=== PATIENT | female | born 1960 | race Caucasian/White ===

== ENCOUNTER → 2016-08-05 | Outpatient (CLI) | payer OTHER ==
--- NOTE | 2016-08-05 18:02 | US ---
EXAMINATION TYPE: US thyroid st tissue head/neck DATE OF EXAM: 08/05/2016 COMPARISON: February 08, 2014 CLINICAL HISTORY: E04.1 Thyroid Nodule. follow up GLAND SIZE: Right Lobe: 3.5 x 1.2 x 1.0 cm Overall Parenchyma: heterogenous Left Lobe: 3.8 x 1.5 x 1.4 cm Overall Parenchyma: heterogeneous Isthmus Thickness: 0.3 cm NODULES RIGHT: # of nodules measured on right: 0 LEFT: # of nodules measured on left: 2 1. 1.2 X 0.7 x 0.9 cm hypoechoic solid nodule at the upper pole with well-defined margins; . This nodule is wider than tall and shows intranodular vascularity. Prior size: 1.0 x 0.6 x 0.7 cm 2. 1.0 X 0.7 x 1.0 cm hypoechoic mixed nodule at the mid pole with well-defined margins; . This nod ule is wider than tall and shows intranodular vascularity. Prior size: 0.9 x 0.6 x 0.6 cm ISTHMUS: # of nodules measured in the isthmus: 0 Bilateral neck scanned, no evidence of lymphadenopathy. nodules as described IMPRESSION: 1. Stable bilateral heterogeneity. 2. Stable left-sided nodularity which is nonspecific.
== END | disposition home or self-care (01) ==
LOC: RADUSWWP 14:59
PROVIDERS: ATTEND Family Medicine
DX: E04.1 Nontoxic single thyroid nodule (principal)
CPT/HCPCS: 76536

== ENCOUNTER → 2016-09-02 | Outpatient (CLI) | payer OTHER | END | disposition home or self-care (01) | LOC: LABWHC1 11:58 | PROVIDERS: ATTEND Internal Medicine Endocrinology, Diabetes & Metabolism | DX: E03.8 Other specified hypothyroidism (principal) | CPT/HCPCS: 36415; 84443 ==

== ENCOUNTER → 2016-10-14 | Outpatient (CLI) | payer OTHER ==
--- NOTE | 2016-10-15 10:55 | MM ---
Reason for exam: screening (asymptomatic). Last mammogram was performed 1 year ago. History: Patient is postmenopausal. Family history of premenopausal breast cancer in sister at age 44. Benign left mammotome panel of the left breast, September 16, 2011. Benign stereotactic core biopsy of the left breast, January 11, 2003. Core biopsy of the left breast. Physical Findings: A clinical breast exam by your physician is recommended on an annual basis and results should be correlated with mammographic findings. MG 3D Screening Mammo W/Cad Bilateral CC and MLO view(s) were taken. Prior study comparison: October 09, 2015, bilateral MG 3d screening mammo w/cad. October 03, 2014, bilateral MG screening mammo w CAD. September 28, 2013, bilateral MG screening mammo w CAD. The breast tissue is heterogeneously dense. This may lower the sensitivity of mammography. Finding #1: There is a 20-25 mm oval mass in the upper outer quadrant, anterior position of the left breast. Finding #2: There are typically benign round calcifications in both breasts, greater in the left breast. Previous mammotome biopsy in the left breast x 2. ASSESSMENT: Incomplete: need additional imaging evaluation, BI-RAD 0 RECOMMENDATION: Ultrasound of the left breast. If lesion persists on supplemental views, image directed ultrasound is recommended. [facility] will attempt to contact patient to return for supplemental views and ultrasound if indicated.
== END | disposition home or self-care (01) ==
LOC: RADMAMWWP 10:52
PROVIDERS: ATTEND Obstetrics & Gynecology
DX: Z12.31 Encounter for screening mammogram for malignant neoplasm of breast (principal)
CPT/HCPCS: 77063; G0202

== ENCOUNTER → 2016-10-21 | Outpatient (CLI) | payer OTHER ==
--- NOTE | 2016-10-22 09:52 | USB ---
Reason for exam: additional evaluation requested from abnormal screening. History: Patient is postmenopausal. Family history of premenopausal breast cancer in sister at age 44. Benign left mammotome panel of the left breast, September 16, 2011. Benign stereotactic core biopsy of the left breast, January 11, 2003. Core biopsy of the left breast. Physical Findings: Nurse Summary: prominant bilateraly nodularity, all soft, movable (nurse ts). US Breast Workup Limited LT Left breast ultrasound demonstates a 2.2 x 2.0 x 0.9cm cystic lesion at 1 o'clock and duct ectasia at the nipple. These results were verbally communicated with the patient and result sheet given to the patient on 10/21/16. ASSESSMENT: Benign, BI-RAD 2 RECOMMENDATION: Return to routine screening mammogram schedule for both breasts.
== END ==
LOC: RADUSWWP 14:10
PROVIDERS: ATTEND Obstetrics & Gynecology
DX: R92.8 Other abnormal and inconclusive findings on diagnostic imaging of breast (principal)

== ENCOUNTER → 2016-11-05 | Outpatient (CLI) | payer OTHER | END | disposition home or self-care (01) | LOC: LABWHC1 12:30 | PROVIDERS: ATTEND Internal Medicine Endocrinology, Diabetes & Metabolism | DX: E03.8 Other specified hypothyroidism (principal) | CPT/HCPCS: 36415; 84443 ==

== ENCOUNTER 2017-02-23 20:44 | Emergency (ER) | payer OTHER ==
[2017-02-23] MEDS ORDERED: SODIUM CHLORIDE 0.9% 1,000 ML IV STA (21:18)
[2017-02-23] MEDS ORDERED: ONDANSETRON 4 MG/2 ML VIAL IVP STA (21:18)
[2017-02-23 21:58] LABS: Amorphous Sediment,Urine Rare /hpf; Appearance,Urine Cloudy (Clear); Bacteria,Urine Occasional /hpf; Bilirubin,Urine Negative (Negative); Glucose,Urine (UA) Trace (Negative); Ketones,Urine Negative (Negative); Leukocyte Esterase,Urine Negative (Negative); Mucus,Urine Rare /hpf; Nitrite,Urine Negative (Negative); PH, Urine 7.5 (5.0-8.0); Particle Count 8249; Protein,Urine Trace (Negative); RBC,Urine 1 /hpf (0-5); Specific Gravity,Urine 1.009 (1.001-1.035); Squamous Epithelial Cell,Urine 1 /hpf (0-4); UA Billing (MACRO vs. MICRO) MICRO; Urobilinogen,Urine <2.0 mg/dL (<2.0); WBC,Urine 3 /hpf (0-5)
[2017-02-23 22:00] LABS: Basophils # (A) 0.1 k/uL (0-0.2); Basophils % (A) 1 %; CH 30.1; CHCM 35.1; Eosinophils # (A) 0.1 k/uL (0-0.7); Eosinophils % (A) 2 %; HCT 42.2 % (34.0-46.0); HDW 2.63; HGB 14.4 gm/dL (11.4-16.0); Luc # (Auto) 0.22; Luc % (Auto) 3; Lymphocytes # (A) 2.3 k/uL (1.0-4.8); Lymphocytes % (A) 28 %; MCH 29.5 pg (25.0-35.0); MCHC 34.2 g/dL (31.0-37.0); MCV 86.4 fL (80.0-100.0); Mean Platelet Volume 6.7; Monocytes # (A) 0.4 k/uL (0-1.0); Monocytes % (A) 5 %; Neutrophils % (A) 62 %; RBC 4.89 m/uL (3.80-5.40); RDW 12.7 % (11.5-15.5); WBC 8.1 k/uL (3.8-10.6)
[2017-02-23 22:06] LABS: ALT 30 U/L (9-52); AST 22 U/L (14-36); Alkaline Phosphatase 76 U/L (38-126); Anion Gap 11 mmol/L; Blood Urea Nitrogen 15 mg/dL (7-17); Calcium 9.9 mg/dL (8.4-10.2); Carbon Dioxide 24 mmol/L (22-30); Chloride 102 mmol/L (98-107); Glucose 169 mg/dL (74-99); Non-African American GFR(MDRD) >60 (>60 ml/min/1.73 sqM); Phosphorus 3.3 mg/dL (2.5-4.5); Potassium 3.4 mmol/L (3.5-5.1); Sodium 137 mmol/L (137-145); Total Bilirubin 0.3 mg/dL (0.2-1.3)
--- NOTE | 2017-02-23 22:06 | CT ---
EXAMINATION TYPE: CT brain wo con DATE OF EXAM: 02/23/2017 HISTORY: Dizziness today. CT DLP: 937.4 mGycm. Automated Exposure Control for Dose Reduction was Utilized. TECHNIQUE: CT scan of the head is performed without contrast. COMPARISON: None. FINDINGS: There is no acute intracranial hemorrhage or midline shift identified. Ventricles and sul ci are within normal limits in size for patient's age. Martinez-white matter differentiation is maintain ed. The globes are intact and the visualized sinuses are predominantly clear. Patchy soft tissue de nsity left external auditory canal is felt to reflect cerumen. No suspicious opacification mastoid ai r cells is present. IMPRESSION: No acute intracranial hemorrhage or midline shift.
[2017-02-23 22:16] LABS: INR 1.1 (<1.2); Prothrombin Time 10.3 sec (9.0-12.0)
--- NOTE | 2017-02-23 22:17 | ED ---
General Adult HPI - General Chief complaint: Dizziness Stated complaint: vomiting/dizziness Time Seen by Provider: 02/23/17 21:15 Source: patient, RN notes reviewed, old records reviewed Mode of arrival: wheelchair Limitations: no limitations - History of Present Illness Initial comments: this is a 36-year-old female to the ER for evaluation. Patient density for evaluation regarding dizziness. Patient has no medical history no trauma, no fevers. Patient states sudden onset tonight of the room spinning around severely, feeling very nauseous vomiting. Patient states symptoms seem to come and go but improved at this time. No headache chest pain shortness breath or abdominal pain no travel history, no sick contacts. Patient's liver prior source of, no new medications. Patient denies drugs or alcohol. - Related Data Home Medications Medication Instructions Recorded Confirmed Calcium Carbonate/Vitamin D3 1 tab PO DAILY 04/04/14 02/23/17 [Calcium 600-Vit D3 400 Tablet] Citalopram Hydrobromide [CeleXA] 20 mg PO DAILY 04/04/14 02/23/17 Levothyroxine Sodium [Synthroid] 75 mcg PO DAILY 04/04/14 02/23/17 Cholecalciferol [Vitamin D3] 1,000 unit PO DAILY 02/23/17 02/23/17 Metoprolol Succinate [Toprol XL] 25 mg PO DAILY 02/23/17 02/23/17 Allergies Allergy/AdvReac Type Severity Reaction Status Date / Time No Known Allergies Allergy Verified 02/23/17 21:27 Review of Systems ROS Statement: Those systems with pertinent positive or pertinent negative responses have been documented in the HPI. ROS Other: All systems not noted in ROS Statement are negative. Past Medical History Past Medical History: Thyroid Disorder Additional Past Medical History / Comment(s): Other HX: uterine fibroids, palpitations- takes atenolol for this reason, low iron anemia History of Any Multi-Drug Resistant Organisms: None Reported Past Surgical History: Orthopedic Surgery Additional Past Surgical History / Comment(s): bilateral carpal tunnel, right thumb, cyst removed from under R foot toe. Past Anesthesia/Blood Transfusion Reactions: No Reported Reaction Additional Past Anesthesia/Blood Transfusion Reaction / Comment(s): Pt has never recieved blood. Past Psychological History: Anxiety Smoking Status: Never smoker Past Alcohol Use History: None Reported Past Drug Use History: None Reported - Past Family History Father Family Medical History: Cancer, Coronary Artery Disease (CAD), Myocardial Infarction ([place]) Additional Family Medical History / Comment(s): Father from MDS a blood disorder, colon cancer, CABG Mother Family Medical History: No Reported History Additional Family Medical History / Comment(s): Mother is living and is 77 yrs old General Exam - General Exam Comments Initial Comments: left ear positive cerumen impaction Limitations: no limitations General appearance: alert, in no apparent distress Head exam: Present: atraumatic, normocephalic, normal inspection Eye exam: Present: normal appearance, PERRL, EOMI. Absent: scleral icterus, conjunctival injection, nystagmus, periorbital swelling ENT exam: Present: normal exam, mucous membranes moist Neck exam: Present: normal inspection. Absent: tenderness, meningismus, lymphadenopathy Respiratory exam: Present: normal lung sounds bilaterally. Absent: respiratory distress, wheezes, rales, rhonchi, stridor Cardiovascular Exam: Present: regular rate, normal rhythm, normal heart sounds. Absent: systolic murmur, diastolic murmur, rubs, gallop, clicks GI/Abdominal exam: Present: soft, normal bowel sounds. Absent: distended, tenderness, guarding, rebound, rigid Extremities exam: Present: normal inspection, full ROM, normal capillary refill. Absent: tenderness, pedal edema, joint swelling, calf tenderness Back exam: Present: normal inspection Neurological exam: Present: alert, oriented X3, CN II-XII intact Psychiatric exam: Present: normal affect, normal mood Skin exam: Present: warm, dry, intact, normal color. Absent: rash Course Vital Signs 02/23/17 02/23/17 20:57 22:33 Temperature 98.1 F Pulse Rate 77 70 Respiratory 18 17 Rate Blood Pressure 187/89 157/84 O2 Sat by Pulse 97 96 Oximetry - Reevaluation(s) Reevaluation #1: 02/23/17 23:01 patient's left ear was clear to cerumen Reevaluation #2: 02/23/17 23:02 patient is able to ambulate without difficulty, states her symptoms are much improved, resolved, no nausea EKG Findings - EKG Comments: EKG Findings:: KG shows sinus rhythm rate of 71, RI 1, QRS 92, QTc 478 Medical Decision Making - Medical Decision Making 55. For evaluation of dizziness. Room spinning around severe sudden onset with nausea and vomiting. Patient felt very dizzy and her feet. All symptoms at this point resolved. Symptoms were positional, patient is able to ambulate without difficulty and okay for discharge home. - Lab Data Result diagrams: 02/23/17 21:27 02/23/17 21:27 Lab Results 02/23/17 02/23/17 02/23/17 Range/Units 21:27 21: 21:27 WBC 8.1 (3.8-10.6) k/uL RBC 4.89 (3.80-5.40) m/uL Hgb 14.4 (11.4-16.0) gm/dL Hct 42.2 (34.0-46.0) % MCV 86.4 (80.0-100.0) fL MCH 29.5 (25.0-35.0) pg MCHC 34.2 (31.0-37.0) g/dL RDW 12.7 (11.5-15.5) % Plt Count 277 (150-450) k/uL Neutrophils % 62 % Lymphocytes % 28 % Monocytes % 5 % Eosinophils % 2 % Basophils % 1 % Neutrophils # 5.0 (1.3-7.7) k/uL Lymphocytes # 2.3 (1.0-4.8) k/uL Monocytes # 0.4 (0-1.0) k/uL Eosinophils # 0.1 (0-0.7) k/uL Basophils # 0.1 (0-0.2) k/uL PT (9.0-12.0) sec INR (<1.2) APTT (22.0-30.0) sec Sodium 137 (137-145) mmol/L Potassium 3.4 L (3.5-5.1) mmol/L Chloride 102 (98-107) mmol/L Carbon Dioxide 24 (22-30) mmol/L Anion Gap 11 mmol/L BUN 15 (7-17) mg/dL Creatinine 0.70 (0.52-1.04) mg/dL Est GFR (MDRD) Af Amer >60 (>60 ml/min/1.73 sqM) Est GFR (MDRD) Non-Af >60 (>60 ml/min/1.73 sqM) Glucose 169 H (74-99) mg/dL Calcium 9.9 (8.4-10.2) mg/dL Phosphorus 3.3 (2.5-4.5) mg/dL Magnesium 2.0 (1.6-2.3) mg/dL Total Bilirubin 0.3 (0.2-1.3) mg/dL AST 22 (14-36) U/L ALT 30 (9-52) U/L Alkaline Phosphatase 76 (38-126) U/L Total Creatine Kinase 115 (30-135) U/L CK-MB (CK-2) 1.2 (0.0-2.4) ng/mL CK-MB (CK-2) Rel Index 1.0 Troponin I <0.012 (0.000-0.034) ng/mL Total Protein 7.0 (6.3-8.2) g/dL Albumin 4.3 (3.5-5.0) g/dL Urine Color Urine Appearance (Clear) Urine pH (5.0-8.0) Ur Specific [place] (1.001-1.035) Urine Protein (Negative) Urine Glucose (UA) (Negative) Urine Ketones (Negative) Urine Blood (Negative) Urine Nitrite (Negative) Urine Bilirubin (Negative) Urine Urobilinogen (<2.0) mg/dL Ur Leukocyte Esterase (Negative) Urine RBC (0-5) /hpf Urine WBC (0-5) /hpf Ur Squamous Epith Cells (0-4) /hpf Amorphous Sediment (None) /hpf Urine Bacteria (None) /hpf Urine Mucus (None) /hpf 02/23/17 02/23/17 Range/Units 21:27 21:27 WBC (3.8-10.6) k/uL RBC (3.80-5.40) m/uL Hgb (11.4-16.0) gm/dL Hct (34.0-46.0) % MCV (80.0-100.0) fL MCH (25.0-35.0) pg MCHC (31.0-37.0) g/dL RDW (11.5-15.5) % Plt Count (150-450) k/uL Neutrophils % % Lymphocytes % % Monocytes % % Eosinophils % % Basophils % % Neutrophils # (1.3-7.7) k/uL Lymphocytes # (1.0-4.8) k/uL Monocytes # (0-1.0) k/uL Eosinophils # (0-0.7) k/uL Basophils # (0-0.2) k/uL PT 10.3 (9.0-12.0) sec INR 1.1 (<1.2) APTT 21.8 L (22.0-30.0) sec Sodium (137-145) mmol/L Potassium (3.5-5.1) mmol/L Chloride (98-107) mmol/L Carbon Dioxide (22-30) mmol/L Anion Gap mmol/L BUN (7-17) mg/dL Creatinine (0.52-1.04) mg/dL Est GFR (MDRD) Af Amer (>60 ml/min/1.73 sqM) Est GFR (MDRD) Non-Af (>60 ml/min/1.73 sqM) Glucose (74-99) mg/dL Calcium (8.4-10.2) mg/dL Phosphorus (2.5-4.5) mg/dL Magnesium (1.6-2.3) mg/dL Total Bilirubin (0.2-1.3) mg/dL AST (14-36) U/L ALT (9-52) U/L Alkaline Phosphatase (38-126) U/L Total Creatine Kinase (30-135) U/L CK-MB (CK-2) (0.0-2.4) ng/mL CK-MB (CK-2) Rel Index Troponin I (0.000-0.034) ng/mL Total Protein (6.3-8.2) g/dL Albumin (3.5-5.0) g/dL Urine Color Light Yellow Urine Appearance Cloudy H (Clear) Urine pH 7.5 (5.0-8.0) Ur Specific [place] 1.009 (1.001-1.035) Urine Protein Trace H (Negative) Urine Glucose (UA) Trace H (Negative) Urine Ketones Negative (Negative) Urine Blood Negative (Negative) Urine Nitrite Negative (Negative) Urine Bilirubin Negative (Negative) Urine Urobilinogen <2.0 (<2.0) mg/dL Ur Leukocyte Esterase Negative (Negative) Urine RBC 1 (0-5) /hpf Urine WBC 3 (0-5) /hpf Ur Squamous Epith Cells 1 (0-4) /hpf Amorphous Sediment Rare H (None) /hpf Urine Bacteria Occasional H (None) /hpf Urine Mucus Rare H (None) /hpf - Radiology Data Radiology results: report reviewed (CT brain is negative), image reviewed Disposition Clinical Impression: Dizziness, Vertigo Disposition: HOME SELF-CARE Condition: Good Instructions: Vertigo (ED) Referrals: Ruben Tam MD [Primary Care Provider] - 1-2 days
[2017-02-23 22:22] LABS: Creatine Kinase 115 U/L (30-135)
[2017-02-23 22:31] LABS: Partial Thromboplastin Time 21.8 sec (22.0-30.0)
[2017-02-23 22:33] LABS: Creatine Kinase MB 1.2 ng/mL (0.0-2.4); Troponin I <0.012 ng/mL (0.000-0.034)
[2017-02-23 22:34] VITALS: PULSE 70; RESP 17
[2017-02-23 23:43] VITALS: BP 148/85; TEMP 97.1
== END 2017-02-23 23:43 | disposition home or self-care (01) ==
LOC: EC 20:44
DX: R42 Dizziness and giddiness (principal); R11.2 Nausea with vomiting, unspecified; E07.9 Disorder of thyroid, unspecified; F41.9 Anxiety disorder, unspecified; Z79.899 Other long term (current) drug therapy; Z87.39 Personal history of other diseases of the musculoskeletal system and connective tissue
CPT/HCPCS: 36415; 93005; 80053; 82550; 82553; 83735; 84100; 84484; 85025; 85610; 85730; 81001; 87086; 70450; 99285; 96374; 96361 ×2; J2405

== ENCOUNTER → 2017-10-22 | Outpatient (CLI) | payer OTHER ==
--- NOTE | 2017-10-26 12:14 | MM ---
Reason for exam: screening (asymptomatic). Last mammogram was performed 1 year ago. History: Patient is postmenopausal. Family history of premenopausal breast cancer in sister at age 44. Benign left mammotome panel of the left breast, September 16, 2011. Benign stereotactic core biopsy of the left breast, January 11, 2003. Core biopsy of the left breast. Physical Findings: A clinical breast exam by your physician is recommended on an annual basis and results should be correlated with mammographic findings. MG 3D Screening Mammo W/Cad Bilateral CC and MLO view(s) were taken. Prior study comparison: October 14, 2016, bilateral MG 3d screening mammo w/cad. October 09, 2015, bilateral MG 3d screening mammo w/cad. Finding: There is a typically benign 20 mm high density, circumscribed oval mass in the 1 o'clock position of the right breast consistent with cyst from 2017. Previous mammotome biopsy in the left breast x 2. No significant changes in finding since October 14, 2016 and October 09, 2015. ASSESSMENT: Benign, BI-RAD 2 RECOMMENDATION: Routine screening mammogram of both breasts in 1 year.
== END | disposition home or self-care (01) ==
LOC: RADMAMWWP 14:02
PROVIDERS: ATTEND Obstetrics & Gynecology
DX: Z12.31 Encounter for screening mammogram for malignant neoplasm of breast (principal)
CPT/HCPCS: 77063; 77067

== ENCOUNTER → 2017-12-08 | Outpatient (CLI) | payer OTHER ==
--- NOTE | 2017-12-08 13:20 | US ---
EXAMINATION TYPE: US thyroid st tissue head/neck DATE OF EXAM: 12/08/2017 COMPARISON: 08/05/2016 CLINICAL HISTORY: 57-year-old female E04.2 GOITER. Follow up thyroid nodules, history of multiple bio psies, on thyroid meds. TECHNIQUE: Multiple sonographic images of the thyroid gland are obtained. FINDINGS: GLAND SIZE: Right Lobe: 3.3 x 1.2 x 1.2 cm Overall Parenchyma: heterogenous Left Lobe: 3.4 x 1.4 x 1.2 cm Overall Parenchyma: heterogeneous Isthmus Thickness: 0.4 cm NODULES RIGHT: # of nodules measured on right: 0 LEFT: # of nodules measured on left: 2 1. 1.1 X 0.7 x 0.9 cm hypoechoic mixed nodule at the upper pole with well-defined margins. This nod ule is wider than tall and shows intranodular vascularity. Prior size: 1.2 x 0.7 x 0.9 cm 2. 1.3 X 1.1 x 1.0 cm mixed nodule at the mid pole with poorly defined margins. This seems to repres ent a thick-walled cystic nodule. This nodule is wider than tall and shows intranodular vascularity. The cystic component as well as the overall nodule size is increased slightly. Prior size: 1.0 x 0.7 x 1.0 cm ISTHMUS: # of nodules measured in the isthmus: 0 Bilateral neck scanned, no evidence of lymphadenopathy. IMPRESSION: 2 dominant nodules on the left. Upper pole nodule at 1.1 x 0.9 cm is grossly stable. The mid pole nodule is mixed solid and cystic and shows slight interval size increase at 1.3 x 1.1 cm (versus 1.0 x 0.7 cm, previously). Continued follow-up recommended.
== END | disposition home or self-care (01) ==
LOC: RADUSWWP 12:15
PROVIDERS: ATTEND Internal Medicine Endocrinology, Diabetes & Metabolism
DX: E04.2 Nontoxic multinodular goiter (principal)
CPT/HCPCS: 76536

== ENCOUNTER → 2018-06-15 | Outpatient (CLI) | payer OTHER ==
--- NOTE | 2018-06-16 07:18 | US ---
EXAMINATION TYPE: US thyroid st tissue head/neck DATE OF EXAM: 06/15/2018 COMPARISON: US 12/08/2017 CLINICAL HISTORY: E04.2 MULTINODULAR GOITER. GLAND SIZE: Right Lobe: 3.5 x 1.2 x 1.0 cm Overall Parenchyma: homogenous Left Lobe: 4.1 x 1.4 x 1.3 cm Overall Parenchyma: homogeneous Isthmus Thickness: 0.3 cm NODULES RIGHT: # of nodules measured on right: 0 LEFT: # of nodules measured on left: 2 1. 1.1 X 0.6 x 0.9 cm hypoechoic mixed nodule at the upper pole with well-defined margins; . This nodule is wider than tall and shows intranodular vascularity. Prior size:1.1 X 0.7 x 0.9 cm 2. 1.3 X 0.9 x 1.1 cm hypoechoic mixed nodule at the lower pole with well-defined margins; . This n odule is wider than tall and shows intranodular vascularity. Prior size: 1.3 X 1.1 x 1.0 cm ISTHMUS: # of nodules measured in the isthmus: 0 Bilateral neck scanned, no evidence of lymphadenopathy. IMPRESSION: The thyroid nodules appear stable in size relative to the prior exam.
== END | disposition home or self-care (01) ==
LOC: RADUSWWP 15:30
PROVIDERS: ATTEND Internal Medicine Endocrinology, Diabetes & Metabolism
DX: E04.2 Nontoxic multinodular goiter (principal)
CPT/HCPCS: 76536

== ENCOUNTER → 2018-11-09 | Outpatient (CLI) | payer OTHER ==
--- NOTE | 2018-11-10 14:14 | MM ---
Reason for exam: screening (asymptomatic). Last mammogram was performed 1 year and 1 month ago. History: Patient is postmenopausal. Family history of premenopausal breast cancer in sister at age 44. Benign left mammotome panel of the left breast, September 16, 2011. Benign stereotactic core biopsy of the left breast, January 11, 2003. Core biopsy of the left breast. Physical Findings: A clinical breast exam by your physician is recommended on an annual basis and results should be correlated with mammographic findings. MG 3D Screening Mammo W/Cad Bilateral CC and MLO view(s) were taken. Prior study comparison: October 22, 2017, bilateral MG 3d screening mammo w/cad. October 14, 2016, bilateral MG 3d screening mammo w/cad. September 28, 2013, bilateral MG screening mammo w CAD. The breast tissue is heterogeneously dense. This may lower the sensitivity of mammography. There are multiple left round oval circumscribed masses, waxing and waning over time most characteristic of cysts. There is no discrete abnormality. No suspicious abnormality. Two left biopsy markers noted. No significant changes when compared with prior studies. ASSESSMENT: Benign, BI-RAD 2 RECOMMENDATION: Routine screening mammogram of both breasts in 1 year.
== END | disposition home or self-care (01) ==
LOC: RADMAMWWP 10:49
PROVIDERS: ATTEND Obstetrics & Gynecology
DX: Z12.31 Encounter for screening mammogram for malignant neoplasm of breast (principal)
CPT/HCPCS: 77063; 77067

== ENCOUNTER → 2019-12-22 | Outpatient (CLI) | payer OTHER ==
--- NOTE | 2019-12-26 11:02 | MM ---
Reason for exam: screening (asymptomatic). Last mammogram was performed 1 year and 1 month ago. History: Patient is postmenopausal. Family history of premenopausal breast cancer in sister at age 44. Benign left mammotome panel of the left breast, September 16, 2011. Benign stereotactic core biopsy of the left breast, January 11, 2003. Core biopsy of the left breast. Physical Findings: A clinical breast exam by your physician is recommended on an annual basis and results should be correlated with mammographic findings. MG 3D Screening Mammo W/Cad Bilateral CC and MLO view(s) were taken. Prior study comparison: November 09, 2018, bilateral MG 3d screening mammo w/cad. October 22, 2017, bilateral MG 3d screening mammo w/cad. The breast tissue is heterogeneously dense. This may lower the sensitivity of mammography. Previous mammotome biopsy in the left breast x 2. Diffuse punctate calcifications, greater in the left breast. No significant changes when compared with prior studies. ASSESSMENT: Benign, BI-RAD 2 RECOMMENDATION: Routine screening mammogram of both breasts in 1 year.
== END | disposition home or self-care (01) ==
LOC: RADMAMWWP 10:53
PROVIDERS: ATTEND Obstetrics & Gynecology
DX: Z12.31 Encounter for screening mammogram for malignant neoplasm of breast (principal)
CPT/HCPCS: 77063; 77067

== ENCOUNTER 2020-03-14 18:05 | Emergency (ER) | payer OTHER ==
[2020-03-14 18:44] VITALS: RESP 18; TEMP 97.9
[2020-03-14] MEDS ORDERED: SODIUM CHLORIDE 0.9% 500 ML 500 ML IV ONE (19:08)
--- NOTE | 2020-03-14 19:08 | ED ---
General Adult HPI - General Chief complaint: Recheck/Abnormal Lab/Rx Stated complaint: HIGH BLOOD PRESSURE Time Seen by Provider: 03/14/20 18:45 Source: patient, RN notes reviewed, old records reviewed Mode of arrival: ambulatory Limitations: no limitations - History of Present Illness Initial comments: 59-year-old female presented for evaluation of hypertension. Patient states that she typically has normal blood pressure, she was seen for an echo and was noted to have a blood pressure 160 which did improve to 140 systolic without specific treatment. She's been monitoring her blood pressure throughout the day today and has had several high reading she went to an outside urgent care and was noted to have a blood pressure greater than 200 systolic. She denies any central radiating typical chest pain. She reports some mild exertional dyspnea. And a mild headache which was not a thunderclap headache and not the worst headache of her life. No fever. No abdominal pain. She has been eating and drinking well. No lower extremity swelling. - Related Data Home Medications Medication Instructions Recorded Confirmed Calcium Carbonate/Vitamin D3 1 tab PO DAILY 04/04/14 02/23/17 [Calcium 600-Vit D3 400 Tablet] Citalopram Hydrobromide [CeleXA] 20 mg PO DAILY 04/04/14 02/23/17 Levothyroxine Sodium [Synthroid] 75 mcg PO DAILY 04/04/14 02/23/17 Cholecalciferol [Vitamin D3] 1,000 unit PO DAILY 02/23/17 02/23/17 Metoprolol Succinate [Toprol XL] 25 mg PO DAILY 02/23/17 02/23/17 Previous Rx's Medication Instructions Recorded amLODIPine [Norvasc] 5 mg PO DAILY #30 tab 03/14/20 Allergies Allergy/AdvReac Type Severity Reaction Status Date / Time No Known Allergies Allergy Verified 03/14/20 18:44 Review of Systems ROS Statement: Those systems with pertinent positive or pertinent negative responses have been documented in the HPI. ROS Other: All systems not noted in ROS Statement are negative. Past Medical History Past Medical History: Thyroid Disorder Additional Past Medical History / Comment(s): Other HX: uterine fibroids, palpitations- takes atenolol for this reason, low iron anemia History of Any Multi-Drug Resistant Organisms: None Reported Past Surgical History: Orthopedic Surgery Additional Past Surgical History / Comment(s): bilateral carpal tunnel, right thumb, cyst removed from under R foot toe. Past Anesthesia/Blood Transfusion Reactions: No Reported Reaction Additional Past Anesthesia/Blood Transfusion Reaction / Comment(s): Pt has never recieved blood. Past Psychological History: Anxiety Smoking Status: Never smoker Past Alcohol Use History: None Reported Past Drug Use History: None Reported - Past Family History Father Family Medical History: Cancer, Coronary Artery Disease (CAD), Myocardial Infarction (NH) Additional Family Medical History / Comment(s): Father from MDS a blood disorder, colon cancer, CABG Mother Family Medical History: No Reported History Additional Family Medical History / Comment(s): Mother is living and is 77 yrs old General Exam Limitations: no limitations General appearance: alert, in no apparent distress Head exam: Present: atraumatic, normocephalic Eye exam: Present: normal appearance, PERRL ENT exam: Present: normal exam Neck exam: Present: normal inspection. Absent: tenderness Respiratory exam: Present: normal lung sounds bilaterally. Absent: respiratory distress Cardiovascular Exam: Present: regular rate, normal rhythm GI/Abdominal exam: Present: soft. Absent: distended, tenderness Extremities exam: Present: normal inspection, normal capillary refill. Absent: pedal edema Back exam: Present: normal inspection Neurological exam: Present: alert, oriented X3, CN II-XII intact. Absent: motor sensory deficit Psychiatric exam: Present: normal affect, normal mood Skin exam: Present: warm, dry, intact. Absent: cyanosis, diaphoretic Course Vital Signs 03/14/20 03/14/20 03/14/20 18:41 20:12 22:21 Temperature 97.9 F Pulse Rate 82 78 80 Respiratory 18 18 18 Rate Blood Pressure 213/105 198/103 166/101 O2 Sat by Pulse 99 99 99 Oximetry EKG Findings - EKG Comments: EKG Findings:: EKG: Normal sinus, rate of 72 MO interval 116, QRS duration 80, QTC 451, no ST segment elevation. Medical Decision Making - Medical Decision Making 59-year-old female presenting for evaluation of hypertension. She did have a mild headache, and the setting of his high blood pressure did perform a CT which was negative for skull hemorrhage or mass effect. Chest x-rays negative for acute cardiopulmonary disease. She is otherwise well-appearing with a nonfocal exam. Other vitals are stable. EKG is sinus rhythm. She has a normal CBC, normal CMP, negative troponin Blood pressure does remain high, patient is started on Norvasc. - Lab Data Result diagrams: 03/14/20 19:17 03/14/20 19:17 Lab Results 03/14/20 03/14/20 03/14/20 Range/Units 19:04 19:17 19:17 WBC 7.9 (3.8-10.6) k/uL RBC 5.32 (3.80-5.40) m/uL Hgb 14.9 (11.4-16.0) gm/dL Hct 46.6 H (34.0-46.0) % MCV 87.5 (80.0-100.0) fL MCH 28.1 (25.0-35.0) pg MCHC 32.0 (31.0-37.0) g/dL RDW 13.0 (11.5-15.5) % Plt Count 256 (150-450) k/uL MPV 7.3 Neutrophils % 77 % Lymphocytes % 16 % Monocytes % 4 % Eosinophils % 1 % Basophils % 0 % Neutrophils # 6.1 (1.3-7.7) k/uL Lymphocytes # 1.3 (1.0-4.8) k/uL Monocytes # 0.3 (0-1.0) k/uL Eosinophils # 0.1 (0-0.7) k/uL Basophils # 0.0 (0-0.2) k/uL PT 10.7 (9.0-12.0) sec INR 1.0 (<1.2) APTT 24.4 (22.0-30.0) sec Sodium (137-145) mmol/L Potassium (3.5-5.1) mmol/L Chloride (98-107) mmol/L Carbon Dioxide (22-30) mmol/L Anion Gap mmol/L BUN (7-17) mg/dL Creatinine (0.52-1.04) mg/dL Est GFR (CKD-EPI)AfAm (>60 ml/min/1.73 sqM) Est GFR (CKD-EPI)NonAf (>60 ml/min/1.73 sqM) Glucose (74-99) mg/dL Plasma Lactic Acid Lio (0.7-2.0) mmol/L Calcium (8.4-10.2) mg/dL Total Bilirubin (0.2-1.3) mg/dL AST (14-36) U/L ALT (4-34) U/L Alkaline Phosphatase (38-126) U/L Troponin I (0.000-0.034) ng/mL Total Protein (6.3-8.2) g/dL Albumin (3.5-5.0) g/dL Urine Color Colorless Urine Appearance Clear (Clear) Urine pH 7.0 (5.0-8.0) Ur Specific [place] 1.006 (1.001-1.035) Urine Protein Negative (Negative) Urine Glucose (UA) Negative (Negative) Urine Ketones Negative (Negative) Urine Blood Negative (Negative) Urine Nitrite Negative (Negative) Urine Bilirubin Negative (Negative) Urine Urobilinogen <2.0 (<2.0) mg/dL Ur Leukocyte Esterase Trace H (Negative) Urine RBC 1 (0-5) /hpf Urine WBC 3 (0-5) /hpf Ur Squamous Epith Cells 3 (0-4) /hpf Urine Mucus Rare H (None) /hpf 03/14/20 03/14/20 03/14/20 Range/Units 19:17 19:17 19:17 WBC (3.8-10.6) k/uL RBC (3.80-5.40) m/uL Hgb (11.4-16.0) gm/dL Hct (34.0-46.0) % MCV (80.0-100.0) fL MCH (25.0-35.0) pg MCHC (31.0-37.0) g/dL RDW (11.5-15.5) % Plt Count (150-450) k/uL MPV Neutrophils % % Lymphocytes % % Monocytes % % Eosinophils % % Basophils % % Neutrophils # (1.3-7.7) k/uL Lymphocytes # (1.0-4.8) k/uL Monocytes # (0-1.0) k/uL Eosinophils # (0-0.7) k/uL Basophils # (0-0.2) k/uL PT (9.0-12.0) sec INR (<1.2) APTT (22.0-30.0) sec Sodium 140 (137-145) mmol/L Potassium 4.0 (3.5-5.1) mmol/L Chloride 106 (98-107) mmol/L Carbon Dioxide 28 (22-30) mmol/L Anion Gap 6 mmol/L BUN 18 H (7-17) mg/dL Creatinine 0.67 (0.52-1.04) mg/dL Est GFR (CKD-EPI)AfAm >90 (>60 ml/min/1.73 sqM) Est GFR (CKD-EPI)NonAf >90 (>60 ml/min/1.73 sqM) Glucose 127 H (74-99) mg/dL Plasma Lactic Acid Lio 0.9 (0.7-2.0) mmol/L Calcium 9.7 (8.4-10.2) mg/dL Total Bilirubin 0.5 (0.2-1.3) mg/dL AST 26 (14-36) U/L ALT 20 (4-34) U/L Alkaline Phosphatase 97 (38-126) U/L Troponin I <0.012 (0.000-0.034) ng/mL Total Protein 7.7 (6.3-8.2) g/dL Albumin 4.7 (3.5-5.0) g/dL Urine Color Urine Appearance (Clear) Urine pH (5.0-8.0) Ur Specific [place] (1.001-1.035) Urine Protein (Negative) Urine Glucose (UA) (Negative) Urine Ketones (Negative) Urine Blood (Negative) Urine Nitrite (Negative) Urine Bilirubin (Negative) Urine Urobilinogen (<2.0) mg/dL Ur Leukocyte Esterase (Negative) Urine RBC (0-5) /hpf Urine WBC (0-5) /hpf Ur Squamous Epith Cells (0-4) /hpf Urine Mucus (None) /hpf Disposition Clinical Impression: Hypertension Disposition: HOME SELF-CARE Condition: Fair Instructions (If sedation given, give patient instructions): Hypertension (ED) Additional Instructions: Please monitor her blood pressure closely, please keep prolonged. Please return to the emergency department with severe headache, or chest pain, or weakness in her arms or legs, any slurring her speech. Please return with any worsening or changing symptoms. Prescriptions: amLODIPine [Norvasc] 5 mg PO DAILY #30 tab Is patient prescribed a controlled substance at d/c from ED?: No Referrals: Ruben Tam MD [Primary Care Provider] - 1-2 days
[2020-03-14 19:24] LABS: Basophils % (A) 0 %; Eosinophils # (A) 0.1 k/uL (0-0.7); Eosinophils % (A) 1 %; HCT 46.6 % (34.0-46.0); HGB 14.9 gm/dL (11.4-16.0); Lymphocytes # (A) 1.3 k/uL (1.0-4.8); Lymphocytes % (A) 16 %; MCH 28.1 pg (25.0-35.0); MCV 87.5 fL (80.0-100.0); Mean Platelet Volume 7.3; Monocytes # (A) 0.3 k/uL (0-1.0); Monocytes % (A) 4 %; Neutrophils # (A) 6.1 k/uL (1.3-7.7); Neutrophils % (A) 77 %; Platelet Count 256 k/uL (150-450); RBC 5.32 m/uL (3.80-5.40); WBC 7.9 k/uL (3.8-10.6)
[2020-03-14 19:33] LABS: Partial Thromboplastin Time 24.4 sec (22.0-30.0); Prothrombin Time 10.7 sec (9.0-12.0)
[2020-03-14 19:34] LABS: ALT 20 U/L (4-34); AST 26 U/L (14-36); African American GFR (CKD) >90 (>60 ml/min/1.73 sqM); Albumin 4.7 g/dL (3.5-5.0); Alkaline Phosphatase 97 U/L (38-126); Anion Gap 6 mmol/L; Blood Urea Nitrogen 18 mg/dL (7-17); Calcium 9.7 mg/dL (8.4-10.2); Carbon Dioxide 28 mmol/L (22-30); Chloride 106 mmol/L (98-107); Glucose 127 mg/dL (74-99); Non-African American GFR(CKD) >90 (>60 ml/min/1.73 sqM); Sodium 140 mmol/L (137-145); Total Bilirubin 0.5 mg/dL (0.2-1.3); Total Protein 7.7 g/dL (6.3-8.2)
[2020-03-14 19:39] LABS: Appearance,Urine Clear (Clear); Bilirubin,Urine Negative (Negative); Blood,Urine Negative (Negative); Color,Urine Colorless; Glucose,Urine (UA) Negative (Negative); Ketones,Urine Negative (Negative); Leukocyte Esterase,Urine Trace (Negative); Mucus,Urine Rare /hpf; Nitrite,Urine Negative (Negative); Protein,Urine Negative (Negative); RBC,Urine 1 /hpf (0-5); Specific Gravity,Urine 1.006 (1.001-1.035); Squamous Epithelial Cell,Urine 3 /hpf (0-4); Urobilinogen,Urine <2.0 mg/dL (<2.0); WBC,Urine 3 /hpf (0-5)
[2020-03-14] MEDS ORDERED: amLODIPine 5 MG TAB PO STA (20:30)
--- NOTE | 2020-03-14 20:52 | CT ---
EXAMINATION: CT brain wo con DATE AND TIME: 03/14/2020 8:27 PM CLINICAL INDICATION: [facility]; MA TECHNIQUE: Standard departmental protocol DLP: 1066.4 mGy-cm COMPARISON: 02/23/2017 FINDINGS: The calvarium is intact. There is no intracranial hemorrhage. There is no intracranial mass or mass effect. No definite new intra-axial or extra-axial attenuation defect. The paranasal sinuses, middle ear cavities, and mastoid sinus air cells are clear. The orbits are unremarkable. IMPRESSION: NO ACUTE PROCESS.
--- NOTE | 2020-03-14 20:54 | XR ---
EXAMINATION: XR chest 2V DATE AND TIME: 03/14/2020 8:49 PM CLINICAL INDICATION: PHH; Weakness TECHNIQUE: Departmental protocol COMPARISON: None FINDINGS: The lungs are clear. The pleural spaces are negative. The cardiac silhouette is not enlarged. The remainder of the mediastinal silhouette is unremarkable. The skeletal structures and soft tissues are negative for acute findings. IMPRESSION: NO ACUTE PROCESS.
[2020-03-14 22:22] VITALS: BP 166/101; PULSE 80
== END 2020-03-14 22:47 | disposition home or self-care (01) ==
LOC: EC 18:05
DX: I10 Essential (primary) hypertension (principal); E07.9 Disorder of thyroid, unspecified; F41.9 Anxiety disorder, unspecified; Z79.890 Hormone replacement therapy; Z79.899 Other long term (current) drug therapy
CPT/HCPCS: 36415; 70450; 71046; 80053; 81001; 83605; 84484; 85025; 85610; 85730; 93005; 96360; 96361; 99284

== ENCOUNTER → 2020-03-25 | Outpatient (CLI) | payer OTHER ==
--- NOTE | 2020-03-25 10:30 | US ---
EXAMINATION TYPE: US renal artery duplex complete DATE OF EXAM: 03/25/2020 COMPARISON: NONE CLINICAL HISTORY: 59-year-old female I10 Essential Hypertension. Newly diagnosed HTN. TECHNIQUE: Multiple sonographic images of the kidneys are obtained. Color Doppler spectral waveform a nalysis of the renal vasculature. FINDINGS: MEASUREMENTS: RENAL SIZE: Rt Kidney: 10.8 x 4.1 x 4.2 cm Lt Kidney: 10.4 x 5.8 x 4.7 cm RESISTANCE INDEX Right: 0.59 Left: 0.59 RA/AO RATIO (< 3.5 ) Right: 1.5 Left: 1.7 RA VELOCITY ( < 180 cm/s) Right: 138 Left: 153 Kidneys are unremarkable. No hydronephrosis. Aorta is unremarkable. Parts Data Writer notes: No ultrasound evidence for renal artery stenosis. Good upstroke on segmentals at r enal hilum. No abnormally elevated resistive indices are identified. IMPRESSION: No sonographic/Doppler evidence for renal artery stenosis on either side.
== END | disposition home or self-care (01) ==
LOC: RADUSWWP 08:53
PROVIDERS: ATTEND Family Medicine
DX: I10 Essential (primary) hypertension (principal)
CPT/HCPCS: 93975

== ENCOUNTER → 2020-04-09 | Outpatient (CLI) | payer OTHER | END | disposition home or self-care (01) | LOC: LABWHC1 08:28 | PROVIDERS: ATTEND Nurse Practitioner Adult Health | DX: E03.9 Hypothyroidism, unspecified (principal); I10 Essential (primary) hypertension | CPT/HCPCS: 36415; 82024; 82164; 83970 ==

== ENCOUNTER → 2021-02-11 | Outpatient (CLI) | payer OTHER ==
--- NOTE | 2021-02-12 12:38 | MM ---
Reason for exam: screening (asymptomatic). Last mammogram was performed 1 year and 2 months ago. History: Patient is postmenopausal. Family history of premenopausal breast cancer in sister at age 44. Benign left mammotome panel of the left breast, September 16, 2011. Benign stereotactic core biopsy of the left breast, January 11, 2003. Core biopsy of the left breast. Physical Findings: A clinical breast exam by your physician is recommended on an annual basis and results should be correlated with mammographic findings. MG 3D Screening Mammo W/Cad Bilateral CC and MLO view(s) were taken. Prior study comparison: December 22, 2019, bilateral MG 3d screening mammo w/cad. November 09, 2018, bilateral MG 3d screening mammo w/cad. The breast tissue is heterogeneously dense. This may lower the sensitivity of mammography. Finding: There is an intermediate concern, suspicious 13 mm high density, circumscribed oval mass located 2-3 cm from the nipple in the upper outer quadrant of the right breast consistent with possible cyst. New finding since December 22, 2019 and November 09, 2018. ASSESSMENT: Incomplete: need additional imaging evaluation, BI-RAD 0 RECOMMENDATION: Ultrasound of the right breast. [facility] will attempt to contact patient to return for ultrasound.
== END | disposition home or self-care (01) ==
LOC: RADMAMWWP 08:11
PROVIDERS: ATTEND Family Medicine
DX: Z12.39 Encounter for other screening for malignant neoplasm of breast (principal)
CPT/HCPCS: 77063; 77067

== ENCOUNTER → 2021-03-04 | Outpatient (CLI) | payer OTHER ==
--- NOTE | 2021-03-04 11:38 | USB ---
Reason for exam: additional evaluation requested from abnormal screening. History: Patient is postmenopausal. Family history of premenopausal breast cancer in sister at age 44. Benign left mammotome panel of the left breast, September 16, 2011. Benign stereotactic core biopsy of the left breast, January 11, 2003. Core biopsy of the left breast. Physical Findings: Nurse did not find any significant physical abnormalities on exam. US Breast Workup RT Right complete breast ultrasound includes all four quadrants, the retroareolar region and axilla. Finding demonstrates a 0.2 x 0.1 x 0.2cm benign lesion at 10 o'clock. 6 month follow up recommended. These results were verbally communicated with the patient and result sheet given to the patient on 03/04/21. ASSESSMENT: Probably benign, BI-RAD 3 RECOMMENDATION: Follow-up diagnostic mammogram of the right breast in 6 months.
== END | disposition home or self-care (01) ==
LOC: RADUSWWP 10:11
PROVIDERS: ATTEND Family Medicine
DX: R92.8 Other abnormal and inconclusive findings on diagnostic imaging of breast (principal)

== ENCOUNTER → 2021-09-11 | Outpatient (CLI) | payer OTHER ==
--- NOTE | 2021-09-11 11:22 | MM ---
Reason for Exam: Follow-up at short interval from prior study. Last screening mammogram was performed 7 month(s) ago. Patient History: Menarche at age 13. First Full-Term at age 25. Hysterectomy at age 54. Postmenopausal. Core Biopsy on the Left side. 09/16/2011, Benign Core Biopsy on the left side. 01/11/2003, Benign Stereotactic Core Biopsy on the left side. Sister had breast cancer, age 44. Risk Values: Irina 5 year model risk: 4.1%. NCI Lifetime model risk: 19.6%. Prior Study Comparison: 10/22/2017 Bilateral Screening Mammogram, [facility]. 11/09/2018 Bilateral Screening Mammogram, [facility]. 12/22/2019 Bilateral Screening Mammogram, [facility]. 02/11/2021 Bilateral Screening Mammogram, [facility]. Tissue Density: Right: The breast tissue is heterogeneously dense. This may lower the sensitivity of mammography. Findings: Analyzed By CAD. Stable appearing calcifications are noted within the right breast. No evidence for mass or distortion. Overall Assessment: Benign, BI-RAD 2 Management: Screening Mammogram of both breasts in 6 months. A clinical breast exam by your physician is recommended on an annual basis and results should be correlated with mammographic findings. This exam should not preclude additional follow-up of suspicious palpable abnormalities. Results were given to the patient verbally at the time of exam. Electronically signed and approved by: Kamari Norris M.D. Radiologis
== END | disposition home or self-care (01) ==
LOC: RADMAMWWP 10:58
PROVIDERS: ATTEND Family Medicine
DX: R92.8 Other abnormal and inconclusive findings on diagnostic imaging of breast (principal)
CPT/HCPCS: 77061; 77065

== ENCOUNTER → 2021-09-26 | Outpatient (CLI) | payer OTHER ==
--- NOTE | 2021-09-26 13:29 | US ---
EXAMINATION TYPE: US thyroid st tissue head/neck DATE OF EXAM: 09/26/2021 COMPARISON: NONE CLINICAL HISTORY: E04.2 NONTOXIC MULTINODULAR GOITER. GLAND SIZE: Right Lobe: 3.5 x 1.0 x 1.0 cm Overall Parenchyma: heterogenous Left Lobe: 3.8 x 1.1 x 1.3 cm Overall Parenchyma: heterogeneous Isthmus Thickness: 0.3 cm NODULES RIGHT: # of nodules measured on right: 0 LEFT: # of nodules measured on left: 1. 1.1 X 0.6 x 0.8 cm, upper , cystic or almost completely cystic, anechoic nodule, which is wider than tall, with smooth margins, without echogenic foci. Prior size:1.1 X 0.6 x 0.9cm 2. 1.6 X 0.8 x 1.2 cm, lower, solid or almost completely solid, hypoechoic nodule, which is wider than tall, with smooth margins, without echogenic foci. Prior size:1.3 X 0.9 x 1.1cm ISTHMUS: # of nodules measured in the isthmus: Bilateral neck scanned, no evidence of lymphadenopathy. IMPRESSION: Stable nonspecific left-sided thyroid nodularity.
== END | disposition home or self-care (01) ==
LOC: RADUSWWP 12:48
PROVIDERS: ATTEND Internal Medicine Endocrinology, Diabetes & Metabolism
DX: E04.2 Nontoxic multinodular goiter (principal); E03.8 Other specified hypothyroidism
CPT/HCPCS: 76536; 84443

== ENCOUNTER → 2022-04-02 | Outpatient (CLI) | payer OTHER ==
--- NOTE | 2022-04-03 08:49 | MM ---
Reason for Exam: Screening (asymptomatic). Last mammogram was performed 1 year(s) and 1 month(s) ago. Patient History: Menarche at age 13. First Full-Term at age 25. Hysterectomy at age 54. Postmenopausal. Core Biopsy on the Left side. 09/16/2011, Benign Core Biopsy on the left side. 01/11/2003, Benign Stereotactic Core Biopsy on the left side. Sister had breast cancer, age 44. Risk Values: Irina 5 year model risk: 4.1%. NCI Lifetime model risk: 19.6%. Prior Study Comparison: 12/22/2019 Bilateral Screening Mammogram, [facility]. 02/11/2021 Bilateral Screening Mammogram, [facility]. 09/11/2021 Right MG 3D diag mammo w/cad RT, [facility]. Tissue Density: The breast tissue is heterogeneously dense. This may lower the sensitivity of mammography. Findings: Analyzed By CAD. Multiple scattered stable calcifications or within left breast. A few scattered stable calcifications are within the right breast. Core markers are within the left breast. No suspicious groups of microcalcifications, spiculated or lobular masses, architectural distortion or other secondary signs of malignancy are mammographically apparent. Overall Assessment: Benign, BI-RAD 2 Management: Screening Mammogram of both breasts in 1 year. A negative mammogram report should not preclude additional follow up of suspicious palpable abnormalities. Patient should continue monthly self breast exam. A clinical breast exam by your physician is recommended on an annual basis and results should be correlated with mammographic findings. Electronically signed and approved by: Amari Leal D.O. Radiologis
== END | disposition home or self-care (01) ==
LOC: RADMAMWWP 13:10
PROVIDERS: ATTEND Family Medicine
DX: Z12.31 Encounter for screening mammogram for malignant neoplasm of breast (principal); Z78.0 Asymptomatic menopausal state; Z80.3 Family history of malignant neoplasm of breast; Z98.890 Other specified postprocedural states
CPT/HCPCS: 77063; 77067

== ENCOUNTER → 2023-01-09 | Outpatient (CLI) | payer OTHER ==
--- NOTE | 2023-01-09 13:45 | MR ---
EXAMINATION TYPE: MR shoulder RT wo con DATE OF EXAM: 01/09/2023 COMPARISON: None HISTORY: Right shoulder pain for 6 weeks due to fall TECHNIQUE: Multiplanar, multisequence imaging of the right shoulder is performed without contrast. FINDINGS: There is moderate osteoarthritic change of the AC joint with no shoulder impingement. There is no bon e contusion or fracture. There is marked thickening and diffuse abnormal signal intensity infraspinatus and supraspinatus tend ons with marked tendinosis. Small intrasubstance tear. No discrete retraction. Mild subacromial and subdeltoid bursitis. The glenohumeral joint is intact however there is complex tear or cartilaginous labrum consistent wit h a SLAP injury. The biceps anchor appears intact and the biceps tendon is normal in signal intensity and position within the bicipital. The subscapularis tendon intact. Particular soft tissues are normal. IMPRESSION: 1. SLAP injury to the superior cartilaginous labrum with an intact biceps anchor. 2. 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 3. Marked tendinosis of the supraspinatus and infraspinatus tendons with possible small intrasubstanc e tear of the infraspinatus tendon. No retraction of the musculotendinous junctions
== END | disposition home or self-care (01) ==
LOC: RADMRIMAIN 10:56
PROVIDERS: ATTEND Orthopaedic Surgery
DX: S46.011A Strain of muscle(s) and tendon(s) of the rotator cuff of right shoulder, initial encounter (principal); M67.813 Other specified disorders of tendon, right shoulder; M19.011 Primary osteoarthritis, right shoulder

== ENCOUNTER → 2023-03-18 | Outpatient (CLI) | payer OTHER ==
--- NOTE | 2023-03-18 15:25 | US ---
EXAMINATION TYPE: US thyroid st tissue head/neck DATE OF EXAM: 03/18/2023 COMPARISON: US CLINICAL INDICATION: Female, 62 years old with history of E04.2 NONTOXIC MULTINODULAR GOITER; F/U goi ter GLAND SIZE: Right Lobe: 3.5 x 1.3 x 1.3 cm Overall Parenchyma: homogeneous Left Lobe: 4.0 x 1.4 x 1.3 cm Overall Parenchyma: homogeneous Isthmus Thickness: 0.3 cm NODULES RIGHT: # of nodules measured on right: 0 LEFT: # of nodules measured on left: 2 1. 1.1 X 0.6 x 0.7 cm, upper, mixed cystic and solid, hypoechoic nodule, which is wider than tall, with smooth margins, without echogenic foci. TR 3. Prior size: 1.1 x 0.6 x 0.8 cm 2. 1.6 X 1.0 x 1.0 cm, mid , solid or almost completely solid, isoechoic nodule, which is wider claire n tall, with ill-defined margins, without echogenic foci. TR3 Prior size: 1.6 x 0.8 x 1.2 cm ISTHMUS: # of nodules measured in the isthmus: 0 Bilateral neck scanned, no evidence of lymphadenopathy. Stable nodules left lobe. IMPRESSION: Mildly suspicious bilateral thyroid lobe nodules. Follow-up in one year is recommended 2017 ACR TI-RADS LEVEL: TR-RADS 3 - Mildly Suspicious: Follow if > 1.5 cm, FNA if > 2.5 cm *Highest TI-RADS level nodule reported
== END | disposition home or self-care (01) ==
LOC: RADUSWWP 14:52
PROVIDERS: ATTEND Internal Medicine Endocrinology, Diabetes & Metabolism
DX: E04.2 Nontoxic multinodular goiter (principal)
CPT/HCPCS: 76536

== ENCOUNTER → 2023-04-06 | Outpatient (CLI) | payer OTHER ==
--- NOTE | 2023-04-07 08:09 | MM ---
Reason for Exam: Screening (asymptomatic). Last screening mammogram was performed 12 month(s) ago. Patient History: Menarche at age 13. First Full-Term at age 25. Hysterectomy at age 54. Postmenopausal. Core Biopsy on the Left side. 09/16/2011, Benign Core Biopsy on the left side. 01/11/2003, Benign Stereotactic Core Biopsy on the left side. Sister had breast cancer, age 44. Risk Values: Irina 5 year model risk: 4.2%. NCI Lifetime model risk: 19.1%. Prior Study Comparison: 02/11/2021 Bilateral Screening Mammogram, [facility]. 09/11/2021 Right MG 3D diag mammo w/cad RT, [facility]. 04/02/2022 Bilateral MG 3D screening mammo w/cad, [facility]. Tissue Density: The breast tissue is heterogeneously dense. This may lower the sensitivity of mammography. Findings: Analyzed By CAD. There is no suspicious group of microcalcifications or new suspicious mass in either breast. Overall Assessment: Benign, BI-RAD 2 Management: Screening Mammogram of both breasts in 1 year. . Patient should continue monthly self-breast exams. A clinical breast exam by your physician is recommended on an annual basis. This exam should not preclude additional follow-up of suspicious palpable abnormalities. Note on Irina scores and lifetime risk: 1. A Irina score greater than 3% is considered moderate risk. If this is the case, consider specialist referral to assess eligibility for a risk reducing agent. 2. If overall lifetime risk for the development of breast cancer is 20% or higher, the patient may qualify for future screening with alternating mammogram and breast MRI. Electronically signed and approved by: Kamari Norris M.D. Radiologis
== END | disposition home or self-care (01) ==
LOC: RADMAMWWP 10:25
PROVIDERS: ATTEND Family Medicine
DX: Z12.31 Encounter for screening mammogram for malignant neoplasm of breast (principal); Z80.3 Family history of malignant neoplasm of breast; Z78.0 Asymptomatic menopausal state
CPT/HCPCS: 77063; 77067

== ENCOUNTER → 2024-02-11 | Outpatient (CLI) | payer OTHER ==
--- NOTE | 2024-02-11 16:13 | US ---
EXAMINATION TYPE: US thyroid st tissue head/neck DATE OF EXAM: 02/11/2024 COMPARISON: 03/18/2023 CLINICAL INDICATION: Female, 63 years old with history of E04.2 NONTOXIC MULTINODULAR GOITER; f/u TECHNIQUE: Grayscale and color Doppler imaging of the thyroid gland. FINDINGS: GLAND SIZE: Right Lobe: 3.8x1.4x1.0 cm Overall Parenchyma: homogeneous Left Lobe: 4.8x1.5x1.3 cm Overall Parenchyma: homogeneous Isthmus Thickness: 0.3 cm NODULES RIGHT: # of nodules measured on right: 0 LEFT: # of nodules measured on left: 2 1. 1.0 X 0.5 x 0.8 cm, upper mid, Prior size: 1.1 x 0.6 x 0.7 cm TIRADS Score: 5 TIRADS Category 4: Composition: Solid or almost completely solid (2 points). Echogenicity: Very hypoechoic (3 points). Shape: Wider than tall (0 points). Margin: Smooth (0 points). Echogenic foci: None or large comet-tail artifacts (0 points) Recommendation: If >1.5cm: FNA; If >1cm: Follow up at 1,2, 3,5 years 2. 1.5 X 1.1 x 1.6 cm, lower mid, Prior size: 1.6 x 1.0 x 1.0 cm TIRADS Score: 3 TIRADS Category 3: Composition: Solid or almost completely solid (2 points). Echogenicity: Hyperechoic or isoechoic (1 point). Shape: Wider than tall (0 points). Margin: Smooth (0 points). Echogenic foci: None or large comet-tail artifacts (0 points) Recommendation: If >2.5cm: FNA; If >1.5cm: Follow up at 1,3,5 years ISTHMUS: # of nodules measured in the isthmus: 0 Bilateral neck scanned, no evidence of lymphadenopathy. IMPRESSION: Left thyroid nodule which is very hypoechoic measuring 1.0 x 0.5 x 0.8 cm this should be tissue sampl ed. [facility], , 02/11/2024 4:11 PM
== END | disposition home or self-care (01) ==
LOC: RADUSWWP 14:16
PROVIDERS: ATTEND Internal Medicine Endocrinology, Diabetes & Metabolism
DX: E04.2 Nontoxic multinodular goiter (principal)
CPT/HCPCS: 76536

== ENCOUNTER → 2024-04-11 | Outpatient (CLI) | payer OTHER ==
--- NOTE | 2024-04-11 10:54 | MM ---
Reason for Exam: Screening (asymptomatic). Last mammogram was performed 1 year(s) and 1 month(s) ago. Patient History: Menarche at age 13. First Full-Term at age 25. Hysterectomy at age 54. Postmenopausal. Core Biopsy on the Left side. 09/16/2011, Benign Core Biopsy on the left side. 01/11/2003, Benign Stereotactic Core Biopsy on the left side. Sister had breast cancer, age 44. Risk Values: Irina 5 year model risk: 4.4%. NCI Lifetime model risk: 18.6%. Prior Study Comparison: 09/11/2021 Right MG 3D diag mammo w/cad RT, [facility]. 04/02/2022 Bilateral MG 3D screening mammo w/cad, [facility]. 04/06/2023 Bilateral MG 3D screening mammo w/cad, [facility]. Tissue Density: The breasts are heterogeneously dense, which may obscure small masses. Findings: Analyzed By CAD. There are 2 biopsy clips in the left breast redemonstrated. There are scattered and regional benign-appearing calcifications bilaterally redemonstrated. There is no suspicious group of microcalcifications or new suspicious mass in either breast. Overall Assessment: Benign, BI-RAD 2 Management: Screening Mammogram of both breasts in 1 year. Some advise annual bilateral breast ultrasound surveillance in patients with background dense tissue. Patient should continue monthly self-breast exams. A clinical breast exam by your physician is recommended on an annual basis. This exam should not preclude additional follow-up of suspicious palpable abnormalities. Note on Irina scores and lifetime risk: 1. A Irina score greater than 3% is considered moderate risk. If this is the case, consider specialist referral to assess eligibility for a risk reducing agent. 2. If overall lifetime risk for the development of breast cancer is 20% or higher, the patient may qualify for future screening with alternating mammogram and breast MRI. [facility], , 04/11/2024 10:50 AM. Electronically signed and approved by: Ethan Delgado M.D.
== END | disposition home or self-care (01) ==
LOC: RADMAMWWP 09:45
PROVIDERS: ATTEND Family Medicine
DX: Z12.31 Encounter for screening mammogram for malignant neoplasm of breast (principal); R92.333 Mammographic heterogeneous density, bilateral breasts; Z78.0 Asymptomatic menopausal state; Z80.3 Family history of malignant neoplasm of breast
CPT/HCPCS: 77063; 77067